=== PATIENT | female | born 1985 | race Caucasian/White ===

== ENCOUNTER 2018-04-28 16:08 | Emergency (ER) | payer BC ==
[~2018-04-28] VITALS: Ht 167.6 cm; Wt 77.3 kg
[2018-04-28 16:12] VITALS: Ht 167.6 cm; Wt 77.3 kg
[2018-04-28] MEDS ORDERED: EC-NAPROSYN500 MG PO (16:59)
[2018-04-28 17:32] VITALS: BP 126/78
== END 2018-04-28 17:33 | disposition home or self-care (01) ==
LOC: D.ER 16:08
DX: S60.221A Contusion of right hand, initial encounter (principal); W18.30XA Fall on same level, unspecified, initial encounter; Y93.89 Activity, other specified; Y92.019 Unspecified place in single-family (private) house as the place of occurrence of the external cause